=== PATIENT | female | born 1980 | race Caucasian/White ===

== ENCOUNTER → 2016-05-25 | Outpatient (CLI) | payer OTHER ==
[~2016-05-25] MED LIST: ACET50TA PO; ANUS2.5C2 TOP; DOCU10CA PO; MOM30SS PO; MOTR200T40 PO; PRENTAB53 PO; TUMS1000 PO
[2016-05-25 11:46] LABS: BASO % 0.4 % (0.0-1.0); EOS % 0.5 % (0.0-3.0); LARGE UNSTAINED CELL # 0.1 K/mm3 (0.0-0.4); LARGE UNSTAINED CELL % 1.2 % (0.0-4.0); LYMPH # 1.5 K/mm3 (1.5-4.5); LYMPH % 14.7 % (24.0-44.0); MEAN CORPUSCULAR HEMOGLOBIN 31.5 pg (27.0-33.0); MEAN CORPUSCULAR HGB CONC 33.9 g/dl (32.0-36.5); MEAN CORPUSCULAR VOLUME 92.8 fl (80.0-96.0); MONO # 0.4 K/mm3 (0.0-0.8); MONO % 3.9 % (0.0-5.0); NEUTROPHILS # 7.8 K/mm3 (1.8-7.7); NEUTROPHILS % 79.3 % (36.0-66.0); PLATELET COUNT, AUTOMATED 209 k/mm3 (150-450); RED CELL DISTRIBUTION WIDTH 12.2 % (11.5-14.5)
[2016-05-26 09:36] LABS: CONTROL LINE INT CTR LINE PRESENT; HIV SCRN NEGATIVE (NEGATIVE); HIV SCRN1 NEGATIVE (NEGATIVE)
[2016-05-26 13:54] LABS: WHITE BLOOD COUNT 9.9 K/mm3 (4.0-10.0)
[2016-05-26 13:55] LABS: HBsAg Prenatal NEGATIVE (NEGATIVE)
== END ==
LOC: M LRY 09:36
PROVIDERS: ATTEND Advanced Practice Midwife
DX: Z34.81 Encounter for supervision of other normal pregnancy, first trimester (principal)

== ENCOUNTER → 2016-06-23 | Outpatient (CLI) | payer OTHER ==
[~2016-06-23] MED LIST changes: -MOTR200T40 PO; +MOTR200T44 PO
== END ==
LOC: M SMT 09:39
PROVIDERS: ATTEND Obstetrics & Gynecology
DX: O09.521 Supervision of elderly multigravida, first trimester (principal); Z3A.12 12 weeks gestation of pregnancy

== ENCOUNTER → 2016-07-23 | Outpatient (CLI) | payer OTHER ==
--- NOTE | 2016-07-23 14:30 | REP ---
OBSTETRIC SONOGRAPHY: HISTORY: Supervision of for anatomy. FINDINGS: Scanning through the gravid uterus demonstrates a viable single intrauterine gestation in a cephalic lie. motion is observed and heart rate is recorder 150 beats per minute. A posterior right lateral grade 0 placenta is seen without evidence of previa or abruption. Amniotic fluid is subjectively normal. Closed cervical length is 2.6 cm. No extrauterine abnormality is observed. Face and profile are less than optimally seen today due to lie. No anomaly is seen. The following additional anatomic structures are identified and felt to be sonographically unremarkable: cranium, choroid plexus, cavum, cerebellum and posterior fossa, nuchal fold, lungs, four-chamber heart with left and right ventricular outflow tract views, diaphragm, left-sided stomach, abdominal wall cord insertion, three-vessel umbilical cord, kidneys and bladder, spine, upper and lower extremities. Biometry Chart: BPD 4.4 cm = 19 weeks 2 days HC 17.0 cm = 19 weeks 4 days AC 14.4 cm = 19 weeks 5 days FL 3.2 cm = 19 weeks 6 days HL 3.0 cm = 20 weeks 0 days CD 2.0 cm = 19 weeks 2 days HC/AC ratio normal 1.18 Cephalic index normal 0.71. Estimated weight 312 grams, 0 pounds 10 ounces, 58th percentile for 19 weeks 3 days. IMPRESSION: Viable single intrauterine gestation at 19 weeks 3 days by today's composite sonographic criteria. SYDNEE by today's sonography is December 14, 2016. Facial profile and face are less than optimally seen due to position. Otherwise, anatomic survey is complete. Signed by Colin Carr MD 07/23/2016 03:28 P
== END ==
LOC: M LRY 08:13
PROVIDERS: ATTEND Advanced Practice Midwife
DX: Z34.82 Encounter for supervision of other normal pregnancy, second trimester (principal)

== ENCOUNTER → 2016-08-20 | Outpatient (CLI) | payer OTHER ==
--- NOTE | 2016-08-20 13:42 | REP ---
OB ULTRASOUND: Real-time sonographic evaluation of gravid uterus performed. There is a single living intrauterine gestation. Estimated gestational age is 23 weeks 3 days. EDC 12/15/2016. Today's measurements indicate appropriate growth. BPD 59 mm = 24 weeks 1 day, 64th percentile HC 223 mm = 24 weeks 2 days, 69th percentile AC 200 mm = 24 weeks 4 days, 74th percentile Femur length 43 mm = 24 weeks 1 day, 64th percentile HC/AC ratio 1.12 within normal range. Estimated weight 690 grams, 73rd percentile. Cervix is closed and measures 3.4 cm in length. heart rate 147 beats per minute. SEEN/GROSSLY UNREMARKABLE Lateral ventricles Yes Posterior fossa Yes Upper lip Yes Four-chamber heart Yes LVOT No RVOT No Stomach Yes Cord insertion Yes Three vessel cord Yes Kidneys Yes Bladder Yes Spine Yes position: Vertex Placenta: Posterior and grade 0 with no previa or abruption. Amniotic fluid: Within normal limits. There may be a nuchal cord. Signed by Cosme Juares MD 08/20/2016 05:38 P
== END ==
LOC: M LRY 08:23
PROVIDERS: ATTEND Advanced Practice Midwife
DX: O09.522 Supervision of elderly multigravida, second trimester (principal)

== ENCOUNTER → 2016-09-24 | Outpatient (CLI) | payer OTHER ==
[2016-09-24 11:44] LABS: BASO % 0.4 % (0.0-1.0); EOS % 0.5 % (0.0-3.0); LARGE UNSTAINED CELL # 0.1 K/mm3 (0.0-0.4); LARGE UNSTAINED CELL % 0.9 % (0.0-4.0); LYMPH # 1.2 K/mm3 (1.5-4.5); LYMPH % 11.5 % (24.0-44.0); MEAN CORPUSCULAR HEMOGLOBIN 32.5 pg (27.0-33.0); MEAN CORPUSCULAR HGB CONC 34.3 g/dl (32.0-36.5); MEAN CORPUSCULAR VOLUME 94.7 fl (80.0-96.0); MONO # 0.5 K/mm3 (0.0-0.8); MONO % 5.1 % (0.0-5.0); NEUTROPHILS # 8.1 K/mm3 (1.8-7.7); NEUTROPHILS % 81.5 % (36.0-66.0); PLATELET COUNT, AUTOMATED 207 k/mm3 (150-450); RED CELL DISTRIBUTION WIDTH 13.1 % (11.5-14.5)
[2016-09-26 00:06] LABS: ANTI PARVO VIRUS LEVEL IGG 3.9 index (0.0-0.8); ANTI PARVO VIRUS LEVEL IgM 0.2 index (0.0-0.8)
== END ==
LOC: M SMT 08:19
PROVIDERS: ATTEND Advanced Practice Midwife
DX: O09.522 Supervision of elderly multigravida, second trimester (principal); Z3A.00 Weeks of gestation of pregnancy not specified

== ENCOUNTER → 2016-11-18 | Outpatient (REF) | payer OTHER | LOC: M LAB REF 12:44 | PROVIDERS: ATTEND Advanced Practice Midwife | DX: Z34.83 Encounter for supervision of other normal pregnancy, third trimester (principal) ==

== ENCOUNTER 2016-11-25 15:52 | Inpatient (IN) | payer OTHER ==
[2016-11-25] VITALS (7 sets, daily range): BP systolic 137–146; BP diastolic 65–93
[~2016-11-25] VITALS: Ht 162.6 cm; Wt 65.0 kg
[2016-11-25 17:37] LABS: MEAN CORPUSCULAR HEMOGLOBIN 31.5 pg (27.0-33.0); MEAN CORPUSCULAR HGB CONC 34.3 g/dl (32.0-36.5); MEAN CORPUSCULAR VOLUME 91.7 fl (80.0-96.0); RED CELL DISTRIBUTION WIDTH 15.3 % (11.5-14.5); WHITE BLOOD COUNT 11.3 K/mm3 (4.0-10.0)
[2016-11-25] MEDS ORDERED: miSOPROStol 50 MCG 1/2 TAB (S0191) PO ONE (17:45)
[2016-11-25 17:46] LABS: ALT/SGPT 89 U/L (12-78); AST/SGOT 56 U/L (15-37); BILIRUBIN,TOTAL 0.3 MG/DL (0.2-1.0); CREATININE FOR GFR 0.52 MG/DL (0.55-1.02); GLOMERULAR FILTRATION RATE > 60.0 (>60); URIC ACID 4.6 MG/DL (2.6-6.0)
--- NOTE | 2016-11-25 18:39 | HPE ---
DATE OF ADMISSION: 11/25/2016 Aleida is a 36-year-old 4, para 1-0-2-1 at 37-3/7 weeks gestation with an estimated date of confinement (EDC) of 12/13/2016 based on first trimester ultrasound. She presents to labor and delivery today after routine appointment at [facility] and noted to have elevated blood pressure of 144/100 and 146/90 with trace proteinuria. She does deny regular contractions, vaginal bleeding and leakage of fluid. Her fetus has been active. She denies headache at this time, visual disturbances and epigastric pain. care was initiated at [facility] in the first trimester. course complicated by a history of gestational hypertension and her prior , advanced maternal age. She did undergo [place] testing which returned male fetus with no aneuploidy detected. OBSTETRICAL HISTORY: February of 2013: Spontaneous . September 2013: Spontaneous . July 2014: She had a spontaneous vaginal delivery at 39 weeks gestation of a 7 pound male following induction for gestational hypertension. OB LABS: Blood type is O+, antibody screen negative, normal Pap smear, positive HPV. Rubella immune, VDRL nonreactive. Urine culture: No growth. Hepatitis B surface antigen negative, HIV negative. Hepatitis C antibody nonreactive. Gonorrhea and chlamydia negative. Gestational diabetic screening 126 and her GBS is negative. PAST MEDICAL HISTORY: Childhood asthma. Abnormal Pap. Positive HPV. Antinuclear antibody. Childhood varicella. SURGERIES: Colposcopy. FAMILY HISTORY: Diabetes, depression and anxiety. SOCIAL HISTORY: The patient is . is at bedside and supportive. She is a nonsmoker. Denies alcohol and drug use. History of positive HPV. Denies history of abuse - physical, sexual and emotional. ALLERGIES: SULFA, PENICILLINS. CURRENT MEDICATIONS: - Zantac 150 mg - vitamin - Claritin 10 mg OBJECTIVE: Temperature 97.6, pulse 98, respirations 18, blood pressure 139/86, 144/86. Alert and oriented times three, no apparent distress. heart rate is 130 with moderate variability, positive accelerations, no decelerations observed. There is no pattern of regular contractions. Her abdomen is gravid, cephalic presentation. Estimated weight 6-1/2 pounds. ASSESSMENT: Intrauterine at 37-3/7 weeks gestation. Gestational hypertension, likely preeclampsia. PLAN: Admit the patient to labor and delivery. Saline lock. Out of bed ad cristina. Regular diet at this time. I did order labs including a pre-eclamptic profile and a spot urine, the results are pending at this time. The patient desires an epidural when she is in active labor. We are going to start misoprostol 50 mcg by mouth. I do anticipate cervical ripening. I will likely start Pitocin and consider assisted rupture of membranes following the patient's epidural administration. I did review the risks to induction including increased risk for section, intolerance to labor, failed induction and the risks to expectant management, which is worsening maternal condition, seizures, stroke, deep vein thrombosis (DVT), pulmonary emboli and demise. The patient has had all of her questions answered, and she does desire to proceed with induction of labor at this time. This plan made in consultation with Dr Vielka Arteaga. MAXINE
[2016-11-25] MEDS ORDERED: LR 1,000 ML IV SCH (22:08)
[2016-11-25] MEDS ORDERED: LACTATED RINGER'S 1000 ML IV ONE (22:15)
[2016-11-25] MEDS ORDERED: OXYTOCIN DRIP 30 UNITS in APPROPRIATE DILUENT 1 EA IV SCH (22:15)
[2016-11-25] MEDS ORDERED: FENTANYL 2MCG/ML ROPIVACAINE 0.2% IN 0.9% NACL 200ML IVBAG As Ordered ONE (23:25)
[2016-11-26] VITALS (25 sets, daily range): BP systolic 132–193; BP diastolic 57–98
[2016-11-26] MEDS ORDERED: ePHEDrine SULFATE 25 MG/5 ML(5MG/ML) SYRINGE IV PRN (00:45)
[2016-11-26] MEDS ORDERED: LACTATED RINGER'S 1000 ML IV PRN (00:45)
[2016-11-26] MEDS ORDERED: EPIDURAL/PCA KEYS XX PRN (00:45)
[2016-11-26] MEDS ORDERED: EPIDURAL COMMENT XX SCH (00:45)
[2016-11-26] MEDS ORDERED: REFRIGERATOR IV KEYS XX PRN (00:45)
[2016-11-26] MEDS ORDERED: FENTANYL/ROPIVACAINE/NACL BAG 200 ML EPIDURAL SCH (00:45)
[2016-11-26] MEDS ORDERED: ONDANSETRON 4MG/2ML VIAL (J2405) IV PRN (00:45)
[2016-11-26] MEDS ORDERED: NALOXONE INJ 0.4 MG/1 ML VIAL (J2310) IV PRN (00:45)
[2016-11-26] MEDS ORDERED: diphenhydrAMINE INJ 50MG/ML VIAL (J1200) IV PRN (00:45)
[2016-11-26] MEDS ORDERED: OXYTOCIN DRIP 30 UNITS in APPROPRIATE DILUENT 1 EA IV SCH (01:31)
[2016-11-26] MEDS ORDERED: RHOGAM 300 MCG (1500 IU) INJ (J2790) IM SCH (01:45)
[2016-11-26] MEDS ORDERED: MEASLES,MUMPS,RUBELLA VACCINE INJ (MMR-II) (90707) SC SCH (01:45)
[2016-11-26] MEDS ORDERED: ANUSOL HC CREAM 30GM TOP PRN (01:45)
[2016-11-26] MEDS ORDERED: DOCUSATE SODIUM 100 MG CAP PO PRN (01:45)
[2016-11-26] MEDS ORDERED: DIBUCAINE 1% OINTMENT 30GM TOP PRN (01:45)
[2016-11-26] MEDS: ACETAMINOPHEN 500 MG TAB PO PRN ×2 (04:08→18:30)
--- NOTE | 2016-11-26 06:32 | DN ---
DATE OF SERVICE: 11/26/2016 Aleida is a 36-year-old 4, para 2-0-2-2 now, who was admitted to labor and delivery for induction of labor due to diagnosis of preeclampsia. One dose of misoprostol was utilized for cervical ripening followed by intravenous (IV) Pitocin and labor did ensue. She had spontaneous rupture of membranes for clear fluid at 0051. She was fully dilated at 0053. She pushed to a normal spontaneous vaginal delivery of a live male in occiput anterior (OA) position with restitution to left occiput transverse (LOT) position at 0106. There was no nuchal cord. Shoulders delivered spontaneously and the corpus immediately followed. The was placed on maternal abdomen crying and active. Mouth and nares were bulb suctioned. Cord was clamped times two and cut by the father of the baby. A spontaneous expulsion of an intact placenta with three-vessel cord by [place] mechanism was at 0113. Uterine hemostasis achieved with IV Pitocin rapid infusion and uterine fundal massage. Estimated blood loss 200 mL. Perineum and vagina were inspected and noted to be intact. No need for any repair. male weighed 2772 grams, 6 pounds 2 ounces, scores 9 and 9. Mother plans to breastfeed and the family have named their son Mukul. At the close of delivery, lap counts, instrument counts were correct and verified.
[2016-11-26] MEDS: PRENATAL VITAMINS CHEWABLE TABLET PO SCH (08:20)
[2016-11-26] MEDS: IBUPROFEN 800 MG TAB PO PRN ×2 (08:20→18:03)
[2016-11-26] MEDS ORDERED: NIFEdipine 10 MG CAP PO ONE (14:45)
[2016-11-27 02:23] VITALS: BP 140/85
[2016-11-27 05:33] VITALS: BP 140/76
[2016-11-27] MEDS: PRENATAL VITAMINS CHEWABLE TABLET PO SCH (09:44)
[2016-11-27] MEDS: IBUPROFEN 800 MG TAB PO PRN (12:23)
[2016-11-27 14:00] VITALS: BP 143/76
[2016-11-27 18:00] VITALS: BP 137/75
[2016-11-27 22:03] VITALS: BP 147/90
[2016-11-28 02:25] VITALS: BP 142/85
[2016-11-28 06:23] VITALS: BP 141/88
[2016-11-28] MEDS: IBUPROFEN 800 MG TAB PO PRN (07:49)
[2016-11-28] MEDS: PRENATAL VITAMINS CHEWABLE TABLET PO SCH (07:49)
== END 2016-11-28 16:00 | disposition home or self-care (01) | DRG 775 ==
LOC: M LDI 15:52 → M OBS 11-26 03:14
PROVIDERS: ADMIT Advanced Practice Midwife; ATTEND Advanced Practice Midwife
PROC: 3E0DXGC Introduction of Other Therapeutic Substance into Mouth and Pharynx, External Approach (ICD-10-PCS; 2016-11-25)
PROC: 10E0XZZ Delivery of Products of Conception, External Approach (ICD-10-PCS; principal; 2016-11-26)
DX: O14.04 Mild to moderate pre-eclampsia, complicating childbirth (principal); Z37.0 Single live birth; Z3A.37 37 weeks gestation of pregnancy; Z88.0 Allergy status to penicillin; Z88.2 Allergy status to sulfonamides; Z88.8 Allergy status to other drugs, medicaments and biological substances; O09.523 Supervision of elderly multigravida, third trimester